=== PATIENT | female | born 1970 | race Caucasian/White ===

== ENCOUNTER 2017-02-04 16:08 | Emergency (ER) | payer BC ==
--- NOTE | 2017-02-04 19:11 | ED NURSING NOTES ---
Clinical Report - Nurses [facility] [address] [place] [address] 02/04/2017 16:09 Patient: BRANDON MAIER TRIAGE Triage time 16:13 Feb 04 2017. Acuity: LEVEL 4. Chief Complaint: (bilateral leg swelling). Alert. No acute distress. SHRUTHI COMA SCORE: Shruthi Coma Scale: 15- eyes open spontaneously (4); best verbal response- oriented x 4 (5); best motor response- obeys commands (6). --16:29 Socorro Lowe R.N. 16:13 02/04/17. BP: 142/84. HR: 95. RR: 18. O2 saturation: 98%. Temp: 98.2 F. Pain level now 2/10. --16:29 Socorro Lowe R.N. Weight: 113.3 kg stated. Height/Length: 63 inches Per Patient. BMI: 44.3. --16:12 Socorro Lowe R.N. Medications Losartan Potassium-HCTZ Oral (Tablet 100-25 mg). --16:18 Socorro Lowe R.N. Venlafaxine HCl ER Oral 150 mg . --16:19 Socorro Lowe R.N. MetFORMIN HCl ER Oral 1000mg daily. --16:20 Socorro Lowe R.N. Loratadine Oral 10 mg. --16:20 Socorro Lowe R.N. Vitamin D3 5000 units, daily. --16:21 Socorro Lowe R.N. NexIUM Oral 20 mg, daily. --16:21 Socorro Lowe R.N. Medication/allergy information source: the patient. --16:29 Socorro Lowe R.N. Allergies Penicillins. (rash) --16:18 Socorro Lowe R.N. History Arrived by private vehicle. Historian: patient. Primary physician (Mirna Meyer). ( Bilateral Swelling in legs. Noticed the swelling last night, significantly different than the normal swelling she may get from HCTZ. Pt has a job where she is sitting all the time. No history of blood clots.). This started yesterday. Treatment HELP DESK SUPPORT: None. SOCIAL HX: Never smoker. Alcohol use; consumes liquor drinks. History of drug use: marijuana. (used too, no longer). No infectious disease exposure. FALL RISK ASSESSMENT: Fall risk assessment completed. No fall risk identified. NUTRITIONAL RISK ASSESSMENT: The nutritional risk assessment revealed no deficiencies. FUNCTIONAL ASSESSMENT: Functional assessment: no impairments noted. LEARNING NEEDS ASSESSMENT: The learning needs assessment revealed no barriers. SKIN INTEGRITY ASSESSMENT: Skin integrity risk assessment completed. No skin integrity risk identified. --16:29 Socorro Lowe R.N. PROBLEMS: Hypertension. Diabetes Mellitus Type 2. --16:24 Socorro Lowe R.N. ADDITIONAL SURGERIES: Carpal Tunnel Surgery. Cholecystectomy. Hysterectomy. Knee Scope. Laparoscopy. Right Foot Sx. --16:24 Socorro Lowe R.N. Interventions ID band on patient. To room. --16:29 Socorro Lowe R.N. PHYSICAL ASSESSMENT GENERAL / NEURO / PSYCH: Oriented X 4. Appears in no acute distress. RESPIRATORY: Respirations not labored. CVS: Capillary refill less than 2 seconds. SKIN: Skin is warm and dry. --16:30 Socorro Lowe R.N. SKIN: Swelling to right leg, right ankle, right foot, left leg, left ankle and left foot (pitting edema). --17:04 Socorro Lowe R.N. NURSING PROGRESS NOTES Patient gowned. Reassurance given. Patient ready for evaluation- ED physician and TOBACCO DIPPER notified. --16:30 Socorro Lowe R.N. EKG time: (17:52). EKG was performed by a tech and shown to the ED physician. --18:06 Vaishail Patterson 18:21 02/04/2017 Site #1 started via IV in the left antecubital space with an 20g angiocath, with aseptic technique and good blood return; two attempts. Blood drawn: rainbow set. Labeled in the presence of the patient and sent to the lab. Saline lock flushed with 10 mL saline. --18:21 Qian Cisneros R.N. Reassurance given. ( [place] [id number]). Patient waiting for evaluation. --18:49 Socorro Lowe R.N. 18:44 02/04/17. BP: 143/81. HR: 96. RR: 18. O2 saturation: 99%. Pain level now 0/10. --18:49 Socorro Lowe R.N. Care transferred and report given (VONNIE Low). --19:07 Socorro Lowe R.N. DISPOSITION / DISCHARGE Departure time: 19:50. Condition at departure: improved. No learning barriers present. Discharge instructions provided and reviewed with the patient. Follow up contact number with PCP. Patient verbalized understanding. Written instructions provided in [place] Island[place]. No warning instructions, medication instructions, treatment instructions, referrals given to the patient or diet instructions. No activity restrictions, note given or stop smoking instructions. The patient was discharged by the nurse practitioner. She was discharged home. She left the Emergency Department ambulatory and via private vehicle. Patient driving. FALL RISK ASSESSMENT: Fall risk assessment completed. No fall risk identified. --19:50 Blas Fuller 19:49 02/04/17. BP: 143/81. HR: 78. RR: 18. O2 saturation: 99%. Temp: deferred. Pain level now: 0/10. --19:50 Blas Fuller 19:50 02/04/2017 Site #1 removed upon discharge. Catheter intact. Bandaid applied. --19:50 Blas Fuller Locked/Released at 02/04/2017 19:50 by Blas Fuller
--- NOTE | 2017-02-04 19:11 | ED CLINICAL REPORT ---
Clinical Report - Physicians/Mid Levels [facility] [address] [place] [address] 02/04/2017 16:09 Patient: BRANDON MAIER Time Seen: 17:23; initial patient contact, initial documentation, patient care assumed. Arrived- By private vehicle. Historian- patient. HISTORY OF PRESENT ILLNESS Chief Complaint: LOWER EXTREMITY SWELLING. Not relieved by anything- worsened by standing and walking. The quality is noted to be similar to prior episodes. No radiation. This started last night and is still present. Symptoms located in the area of the right ankle, right leg, right foot, left leg, left foot and left ankle. The patient has had swelling, but not had redness. No difficulty walking. No bladder dysfunction, bowel dysfunction, sensory loss or motor loss. Patient denies an injury. Similar symptoms previously: Chronically, milder. ( states she has had trouble with leg swelling for years, and approx x3 years ago, had veins removed in L leg, and they thought that was reason L leg was bigger than R, but it didn't help). Recent medical care: Not recently seen/assessed. REVIEW OF SYSTEMS No chest pain, difficulty breathing or fever. All systems otherwise negative, except as recorded above. PAST HISTORY See nurses notes. ( PROBLEMS: Hypertension. Diabetes Mellitus Type 2. --16:24 Socorro Lowe R.N. ADDITIONAL SURGERIES: Carpal Tunnel Surgery. Cholecystectomy. Hysterectomy. Knee Scope. Laparoscopy. Right Foot Sx. --16:24 Socorro Lowe R.N.). SOCIAL HISTORY Never smoker. Regular alcohol use. History of heavy drug use: marijuana. No recent travel. Is a local resident. FAMILY HISTORY Negative. ADDITIONAL NOTES The nursing notes have been reviewed with agreement regarding the chief complaint, HPI, ROS, PMH and patient medications and allergies. PHYSICAL EXAM Vital Signs: 02/04/2017 16:13 BP: 142/84. HR: 95. RR: 18. O2 saturation: 98%. Temp: 98.2 F. Have been reviewed as normal and appear to be correct. Appearance: Alert. Oriented X3. No acute distress. Eyes: Pupils equal, round and reactive to light. Eyes normal inspection. Neck: Normal inspection. Neck supple. CVS: Normal heart rate and rhythm. Heart sounds normal. Respiratory: No respiratory distress. Breath sounds normal. Back: Normal inspection. No tenderness. ROM normal. Skin: Skin intact. Skin warm and dry. Normal skin color. Normal skin turgor. Extremities: Lower extremities exhibit normal ROM. Lower extremity edema present. Bilateral non-pitting edema of the lower extremities involving both feet, both ankles and both lower legs; mild non-pitting edema of the right lower extremity involving the foot and ankle; left lower extremity involving the foot, ankle and lower leg. Extremities otherwise negative. Gait: Normal gait. Neuro: Oriented X 3. No motor deficit. No sensory deficit. LABS, X-RAYS, AND EKG EKG: EKG time: (1751). No acute process. No acute ischemia. Normal EKG. Rate: 82. Normal EKG. The study has been interpreted contemporaneously by me (and Dr Langford). The EKG appears to be a good tracing. Interpretation time: 1753. Laboratory Tests: CBC w Diff: (KIM: 02/04/2017 18:20) ( MsgRcvd 02/04/2017 18:33) Final results Test Result Flag Units (Reference) WHITE BLOOD COUNT 5.5 K/uL (4.5-11.5) RED BLOOD COUNT 4.24 M/uL (4.00-5.20) HEMOGLOBIN 10.6 L gm/dL (12.0-16.0) HEMATOCRIT 33.2 L % (36.0-46.0) MEAN CELL VOLUME 78 L fL (80-100) MEAN CORPUSCULAR HGB 25 L pg (26-34) MEAN CORPUSCULAR HGB CONC 32 g/dL (31-37) RED CELL DISTRIBUTION WIDTH 17.5 H % (11.6-14.8) PLATELET COUNT 284 K/uL (150-400) NEUTROPHIL % 52.2 % (50-75) LYMPH % 39.7 % (25-40) MONO % 4.9 % (3-14) EOSINOPHIL % 2.4 % (0-4) BASOPHIL % 0.8 % (0-2) [id number]: (KIM: 02/04/2017 18:20) ( MsgRcvd 02/04/2017 18:34) Final results Test Result Flag Units (Reference) D-DIMER QUANTITATIVE 0.32 ug/mLFEU (0.27-0.52) The primary value of this quantitative assay relates toits negative predictive value (i.e. exclusion) of pulmonaryembolism/deep vein thrombosis/DIC.Elevated levels of d-dimer may also occur with:, age, cancer, inflammation, liver disease,post-op, infection, hematoma, coronary disease, peripheralarteriopathy, bleeding disorders and thrombolytic treatment.Results should be correlated with other clinical andradiological data.Testing Methodology: Latex Immunoassay CMP: (KIM: 02/04/2017 18:20) ( MsgRcvd 02/04/2017 18:39) Final results Test Result Flag Units (Reference) GLUCOSE 98 mg/dL (70-110) BUN 12 mg/dL (7-18) CREATININE 0.9 mg/dL (0.6-1.3) Estimated GFR >60 mL/min Estimated GFR- >60 mL/min Note: Persistent reduction over 3 months in eGFR<60 mL/min/1.73 m2 defines CKD. Patients with eGFR values>=60 mL/min/1.73 m2 may also have CKD if evidence ofpersistent proteinuria. Additional information may be foundat www.kidney.org. SODIUM 139 mmol/L (136-145) POTASSIUM 3.4 L mmol/L (3.5-5.1) CHLORIDE 102 mmol/L (98-107) CARBON DIOXIDE 27 mmol/L (21-32) CALCIUM 9.2 mg/dL (8.5-10.1) TOTAL PROTEIN 7.2 g/dL (6.4-8.2) ALBUMIN 3.4 g/dL (3.3-5.0) BILIRUBIN, TOTAL 0.5 mg/dL (0.0-1.0) ALKALINE PHOSPHATASE 60 U/L (46-116) AST (SGOT) 22 U/L (15-37) ALT (SGPT) 29 U/L (12-78) . PROGRESS AND PROCEDURES Course of Care: 02/04/2017 18:44 BP: 143/81. HR: 96. RR: 18. O2 saturation: 99%. Vital Signs: have been reviewed as normal and appear to be correct. Patient counseled in person regarding the patient's stable condition, test results and diagnosis. 1905. Differential Diagnosis: Other possible considerations: dvt, pvd, venous stasis, dependent edema, renal insufficiency/failure, chf, electrolyte imbalance. Above considerations are based on history, physical exam, reassessment and laboratory data. Differential diagnosis was discussed with patient. Disposition: Discharged home in good and unchanged condition (19:11). Condition: good and stable. CLINICAL IMPRESSION Bilateral pedal edema secondary to unknown cause. No congestive heart failure. INSTRUCTIONS Warnings: GENERAL WARNINGS: Return or contact your physician immediately if your condition worsens or changes unexpectedly, if not improving as expected, or if other problems arise. Specifically return if problem worsens. Follow-up: Follow up with your doctor in about three days even if well. Call for an appointment. Summary of care provided to patient. Understanding of the discharge instructions verbalized by patient. (Electronically signed by Marianela Costello A.R.N.P. 02/04/2017 21:15)
--- NOTE | 2017-02-04 19:11 | ED NURSING NOTES ---
Clinical Report - Nurses [facility] [address] [place] [address] 02/04/2017 16:09 Patient: BRANDON MAIER TRIAGE Triage time 16:13 Feb 04 2017. Acuity: LEVEL 4. Chief Complaint: (bilateral leg swelling). Alert. No acute distress. SHRUTHI COMA SCORE: Shruthi Coma Scale: 15- eyes open spontaneously (4); best verbal response- oriented x 4 (5); best motor response- obeys commands (6). --16:29 Socorro Lowe R.N. 16:13 02/04/17. BP: 142/84. HR: 95. RR: 18. O2 saturation: 98%. Temp: 98.2 F. Pain level now 2/10. --16:29 Socorro Lowe R.N. Weight: 113.3 kg stated. Height/Length: 63 inches Per Patient. BMI: 44.3. --16:12 Socorro Lowe R.N. Medications Losartan Potassium-HCTZ Oral (Tablet 100-25 mg). --16:18 Socorro Lowe R.N. Venlafaxine HCl ER Oral 150 mg . --16:19 Socorro Lowe R.N. MetFORMIN HCl ER Oral 1000mg daily. --16:20 Socorro Lowe R.N. Loratadine Oral 10 mg. --16:20 Socorro Lowe R.N. Vitamin D3 5000 units, daily. --16:21 Socorro Lowe R.N. NexIUM Oral 20 mg, daily. --16:21 Socorro Lowe R.N. Medication/allergy information source: the patient. --16:29 Socorro Lowe R.N. Allergies Penicillins. (rash) --16:18 Socorro Lowe R.N. History Arrived by private vehicle. Historian: patient. Primary physician (Mirna Meyer). ( Bilateral Swelling in legs. Noticed the swelling last night, significantly different than the normal swelling she may get from HCTZ. Pt has a job where she is sitting all the time. No history of blood clots.). This started yesterday. Treatment PROCUREMENT SERVICES MANAGER: None. SOCIAL HX: Never smoker. Alcohol use; consumes liquor drinks. History of drug use: marijuana. (used too, no longer). No infectious disease exposure. FALL RISK ASSESSMENT: Fall risk assessment completed. No fall risk identified. NUTRITIONAL RISK ASSESSMENT: The nutritional risk assessment revealed no deficiencies. FUNCTIONAL ASSESSMENT: Functional assessment: no impairments noted. LEARNING NEEDS ASSESSMENT: The learning needs assessment revealed no barriers. SKIN INTEGRITY ASSESSMENT: Skin integrity risk assessment completed. No skin integrity risk identified. --16:29 Socorro Lowe R.N. PROBLEMS: Hypertension. Diabetes Mellitus Type 2. --16:24 Socorro Lowe R.N. ADDITIONAL SURGERIES: Carpal Tunnel Surgery. Cholecystectomy. Hysterectomy. Knee Scope. Laparoscopy. Right Foot Sx. --16:24 Socorro Lowe R.N. Interventions ID band on patient. To room. --16:29 Socorro Lowe R.N. PHYSICAL ASSESSMENT GENERAL / NEURO / PSYCH: Oriented X 4. Appears in no acute distress. RESPIRATORY: Respirations not labored. CVS: Capillary refill less than 2 seconds. SKIN: Skin is warm and dry. --16:30 Socorro Lowe R.N. SKIN: Swelling to right leg, right ankle, right foot, left leg, left ankle and left foot (pitting edema). --17:04 Socorro Lowe R.N. NURSING PROGRESS NOTES Patient gowned. Reassurance given. Patient ready for evaluation- ED physician and ARRT TECHNOLOGIST notified. --16:30 Socorro Lowe R.N. EKG time: (17:52). EKG was performed by a tech and shown to the ED physician. --18:06 Vaishali Patterson 18:21 02/04/2017 Site #1 started via IV in the left antecubital space with an 20g angiocath, with aseptic technique and good blood return; two attempts. Blood drawn: rainbow set. Labeled in the presence of the patient and sent to the lab. Saline lock flushed with 10 mL saline. --18:21 Qian Cisneros R.N. Reassurance given. ( [place] [id number]). Patient waiting for evaluation. --18:49 Socorro Lowe R.N. 18:44 02/04/17. BP: 143/81. HR: 96. RR: 18. O2 saturation: 99%. Pain level now 0/10. --18:49 Socorro Lowe R.N. Care transferred and report given (VONNIE Low). --19:07 Socorro Lowe R.N. DISPOSITION / DISCHARGE Departure time: 19:50. Condition at departure: improved. No learning barriers present. Discharge instructions provided and reviewed with the patient. Follow up contact number with PCP. Patient verbalized understanding. Written instructions provided in [place]. No warning instructions, medication instructions, treatment instructions, referrals given to the patient or diet instructions. No activity restrictions, note given or stop smoking instructions. The patient was discharged by the nurse practitioner. She was discharged home. She left the Emergency Department ambulatory and via private vehicle. Patient driving. FALL RISK ASSESSMENT: Fall risk assessment completed. No fall risk identified. --19:50 Blas Fuller 19:49 02/04/17. BP: 143/81. HR: 78. RR: 18. O2 saturation: 99%. Temp: deferred. Pain level now: 0/10. --19:50 Blas Fuller 19:50 02/04/2017 Site #1 removed upon discharge. Catheter intact. Bandaid applied. --19:50 Blas Fuller Locked/Released at 02/04/2017 19:50 by Blas Fuller
--- NOTE | 2017-02-04 19:11 | ED ORDER SUMMARY ---
..... Patient: BRANDON MAIER OrderSheet [facility] VisitID: [id number] [place] [address] 46y, F Registration Date/Time: 02/04/2017 ORDER SHEET Weight: 113.3 kg (stated) Allergies: Penicillins GENERAL ORDERS: CBC w Diff Urgent (17:40 02/04/2017 HBivens A.R.N.P.) (Ack 18:02 Romannandez) (18:20 JSanders R.N.) CMP Urgent (17:40 02/04/2017 HBivens A.R.N.P.) (Ack 18:02 Romannandez) (18:20 JSanders R.N.) D-Dimer Urgent (17:40 02/04/2017 HBivens A.R.N.P.) (Ack 18:02 Shanna) (18:20 JSanders R.N.) EKG - ER Stat (17:40 02/04/2017 HBivens A.R.N.P.) (18:05 JSanders R.N.) (18:06 [facility]) MEDICATION ORDERS: IV FLUIDS: IV Saline Lock (17:40 02/04/2017 HBivens A.R.N.P.) (18:21 JSanders R.N.) ORDER SHEET NOTES: [Electronically signed by Maranda Holland R.N. (19:50 02/04/2017)] [Electronically signed by Marianela Costello.R.N.P. (21:15 02/04/2017)] [Electronically locked/signed by Maranda Holland R.N. (19:50 02/04/2017)]
--- NOTE | 2017-02-04 19:11 | ED ORDER SUMMARY ---
..... Patient: BRANDON MAIER OrderSheet [facility] VisitID: [id number] [place] [address] 46y, F Registration Date/Time: 02/04/2017 ORDER SHEET Weight: 113.3 kg (stated) Allergies: Penicillins GENERAL ORDERS: CBC w Diff Urgent (17:40 02/04/2017 HBivens A.R.N.P.) (Ack 18:02 Romannandez) (18:20 JSanders R.N.) CMP Urgent (17:40 02/04/2017 HBivens A.R.N.P.) (Ack 18:02 Romannandez) (18:20 JSanders R.N.) D-Dimer Urgent (17:40 02/04/2017 HBivens A.R.N.P.) (Ack 18:02 Shanna) (18:20 JSanders R.N.) EKG - ER Stat (17:40 02/04/2017 HBivens A.R.N.P.) (18:05 JSanders R.N.) (18:06 [facility]) MEDICATION ORDERS: IV FLUIDS: IV Saline Lock (17:40 02/04/2017 HBivens A.R.N.P.) (18:21 JSanders R.N.) ORDER SHEET NOTES: [Electronically signed by Maranda Holland R.N. (19:50 02/04/2017)] [Electronically signed by Marianela Costello.R.N.P. (21:15 02/04/2017)] [Electronically locked/signed by Maranda Holland R.N. (19:50 02/04/2017)]
--- NOTE | 2017-02-04 21:16 | ED MED RECONCILIATION SUMMARY ---
Patient: BRANDON MAIER Medication Reconciliation Report [facility] VisitID: [id number] [address] [place] [address] 46y, F Registration Date/Time: 02/04/2017 Weight: 113.3 kg Height/Length: 63 in. BMI: 44.3 ALLERGIES: Penicillins The patient's Home Medications are listed below: THE FOLLOWING MEDICATIONS NEED TO BE RECONCILED: Loratadine Oral 10 mg Losartan Potassium-HCTZ Oral (100-25 mg) MetFORMIN HCl ER Oral 1000mg daily NexIUM Oral 20 mg, daily Venlafaxine HCl ER Oral 150 mg Vitamin D3 5000 units, daily The source(s) of the original Home Medication information: patient The following Medications were given to the patient in the Emergency Department: None. The following Medications were prescribed to the patient: None.
--- NOTE | 2017-02-04 21:16 | ED DISCHARGE INSTRUCTIONS ---
Patient: BRANDON MAIER General Instructions [facility] VisitID: [id number] [place] [address] 46y, [place] Registration Date/Time: 02/04/2017 Bilateral pedal edema secondary to unknown cause. No congestive heart failure. INSTRUCTIONS Warnings: GENERAL WARNINGS: Return or contact your physician immediately if your condition worsens or changes unexpectedly, if not improving as expected, or if other problems arise. Specifically return if problem worsens. Follow-up: Follow up with your doctor in about three days even if well. Call for an appointment. Summary of care provided to patient. Understanding of the discharge instructions verbalized by patient. ADDITIONAL INFORMATION Leg Swelling [Bilateral] Swelling of the feet, ankles and legs is called "Edema." It is due to excess fluid collecting in the tissues. Because of gravity, excess fluid in the body settles in the lowest part. This is why the legs and feet are most affected. Some of the causes for edema include: Disease of the heart (congestive heart failure or "CHF") Prolonged standing or sitting (with the legs in the down position) Infection of the feet or legs Venous Insufficiency (congestion of blood in the veins of the legs) Varicose veins (dilated veins of the lower leg) Garters, or clothing that constricts your legs. (These will cause venous congestion by restricting blood flow.) Some medicines (hormones such as control pills; some blood pressure medicines, such as calcium channel blockers; steroids; some antidepressants such as MAO inhibitors and tricyclics.) Menstrual periods with fluid retention Renal insufficiency (a form of kidney disease) Liver failure (Some swelling is normal, but a sudden increase in leg swelling or weight gain can be a sign of a dangerous complication of ). Medical treatment will depend on the cause of your swelling. Diuretics (water pills) may be prescribed to remove excess fluid. Home Care: Do not wear garments that constrict your legs (such as garters). Elevate your legs while lying or sitting. If infection, injury or recent surgery is the cause for your swelling, stay off your legs as much as possible until symptoms improve. If your doctor says that your leg swelling is caused by venous insufficiency or varicose veins, do not sit or bilingual instructor one place for long periods of time. Take breaks and walk about every few hours. Brisk walking is a good exercise and helps circulate the congested blood from your leg. Talk to your doctor about the use of support stockings to prevent daytime leg swelling. If your doctor says that heart disease is the cause of your leg swelling, follow a low-salt diet to prevent excess fluid retention. Follow Up with your doctor or as advised by our staff. Get Prompt Medical Attention if any of the following occur: New or worsening shortness of breath or chest pain Increasing swelling in both legs or ankles Swelling of the abdomen Redness, warmth or swelling in one leg Fever of 100.4F (38C) or higher, or as directed by your healthcare provider Yellow color to the skin or eyes Rapid, unexplained weight gain You have been given the following additional information: Peripheral Edema, Bilateral (Electronically signed by Marianela Costello A.R.N.P. 02/04/2017 21:15)
--- NOTE | 2017-02-04 21:16 | ED MAR SUMMARY ---
..... Medication Administration Record [facility] [address] [place], [place] [id number] Patient: BRANDON MAIER Visit ID: [id number] 46y, F Weight: 113.3 kg Height/Length: 63 in BMI: 44.3 ALLERGIES: Penicillins
--- NOTE | 2017-02-04 21:16 | ED DISCHARGE INSTRUCTIONS ---
Patient: BRANDON MAIER General Instructions [facility] VisitID: [id number] [place] [address] 46y, F Registration Date/Time: 02/04/2017 Bilateral pedal edema secondary to unknown cause. No congestive heart failure. INSTRUCTIONS Warnings: GENERAL WARNINGS: Return or contact your physician immediately if your condition worsens or changes unexpectedly, if not improving as expected, or if other problems arise. Specifically return if problem worsens. Follow-up: Follow up with your doctor in about three days even if well. Call for an appointment. Summary of care provided to patient. Understanding of the discharge instructions verbalized by patient. ADDITIONAL INFORMATION Leg Swelling [Bilateral] Swelling of the feet, ankles and legs is called "Edema." It is due to excess fluid collecting in the tissues. Because of gravity, excess fluid in the body settles in the lowest part. This is why the legs and feet are most affected. Some of the causes for edema include: Disease of the heart (congestive heart failure or "CHF") Prolonged standing or sitting (with the legs in the down position) Infection of the feet or legs Venous Insufficiency (congestion of blood in the veins of the legs) Varicose veins (dilated veins of the lower leg) Garters, or clothing that constricts your legs. (These will cause venous congestion by restricting blood flow.) Some medicines (hormones such as control pills; some blood pressure medicines, such as calcium channel blockers; steroids; some antidepressants such as MAO inhibitors and tricyclics.) Menstrual periods with fluid retention Renal insufficiency (a form of kidney disease) Liver failure (Some swelling is normal, but a sudden increase in leg swelling or weight gain can be a sign of a dangerous complication of ). Medical treatment will depend on the cause of your swelling. Diuretics (water pills) may be prescribed to remove excess fluid. Home Care: Do not wear garments that constrict your legs (such as garters). Elevate your legs while lying or sitting. If infection, injury or recent surgery is the cause for your swelling, stay off your legs as much as possible until symptoms improve. If your doctor says that your leg swelling is caused by venous insufficiency or varicose veins, do not sit or floor service worker spring one place for long periods of time. Take breaks and walk about every few hours. Brisk walking is a good exercise and helps circulate the congested blood from your leg. Talk to your doctor about the use of support stockings to prevent daytime leg swelling. If your doctor says that heart disease is the cause of your leg swelling, follow a low-salt diet to prevent excess fluid retention. Follow Up with your doctor or as advised by our staff. Get Prompt Medical Attention if any of the following occur: New or worsening shortness of breath or chest pain Increasing swelling in both legs or ankles Swelling of the abdomen Redness, warmth or swelling in one leg Fever of 100.4F (38C) or higher, or as directed by your healthcare provider Yellow color to the skin or eyes Rapid, unexplained weight gain You have been given the following additional information: Peripheral Edema, Bilateral (Electronically signed by Marianela Costello A.R.N.P. 02/04/2017 21:15)
--- NOTE | 2017-02-04 21:16 | ED MAR SUMMARY ---
..... Medication Administration Record [facility] [address] [place], [place] [id number] Patient: BRANDON MAIER Visit ID: [id number] 46y, F Weight: 113.3 kg Height/Length: 63 in BMI: 44.3 ALLERGIES: Penicillins
--- NOTE | 2017-02-04 21:16 | ED MED RECONCILIATION SUMMARY ---
Patient: BRANDON MAIER Medication Reconciliation Report [facility] VisitID: [id number] [address] [place] [address] 46y, F Registration Date/Time: 02/04/2017 Weight: 113.3 kg Height/Length: 63 in. BMI: 44.3 ALLERGIES: Penicillins The patient's Home Medications are listed below: THE FOLLOWING MEDICATIONS NEED TO BE RECONCILED: Loratadine Oral 10 mg Losartan Potassium-HCTZ Oral (100-25 mg) MetFORMIN HCl ER Oral 1000mg daily NexIUM Oral 20 mg, daily Venlafaxine HCl ER Oral 150 mg Vitamin D3 5000 units, daily The source(s) of the original Home Medication information: patient The following Medications were given to the patient in the Emergency Department: None. The following Medications were prescribed to the patient: None.
== END 2017-02-04 19:50 | disposition home or self-care (01) ==
LOC: ED SRH 16:08
DX: R60.0 Localized edema (principal); I10 Essential (primary) hypertension; E11.9 Type 2 diabetes mellitus without complications; Z79.899 Other long term (current) drug therapy; Z79.84 Long term (current) use of oral hypoglycemic drugs; Z88.0 Allergy status to penicillin
CPT/HCPCS: 90100; 91556; 95059

== ENCOUNTER 2017-03-04 10:27 | Outpatient (CLI) | payer BC ==
--- NOTE | 2017-03-04 16:57 | DIAGNOSTIC IMAGING REPORT ---
PROCEDURE: US SOFT TISSUE THYR/NECK/HEAD INDICATION: NEOPLASM MALIGNANT THYROID GLAND TECHNIQUE: Bach scale and color Doppler sonographic images of the thyroid gland were obtained. COMPARISON: None. FINDINGS: The right thyroid lobe is reportedly surgically absent, however there is a mildly irregular, ovoid, hypoechoic nodule in the right thyroid bed measuring 0.9 x 0.8 x 1.4 cm with trace vascularity. The left thyroid lobe measures 1.3 x 1.6 x 3.5 cm. There is normal vascularity and fairly homogeneous echotexture. The margins are mildly irregular. The isthmus measures 5.2 mm in thickness and demonstrates homogeneous echotexture and normal vascularity. No significant adenopathy adjacent to the gland. IMPRESSION: 1. Residual or recurrent thyroid tissue in the right thyroidectomy bed. Comparison to prior studies is necessary. An addendum will be generated when these become available for review. Correlation with serum thyroglobulin levels is recommended. 2. Mildly diminutive left thyroid lobe without cyst or solid mass.
== END 2017-03-04 23:00 ==
LOC: US SRH 10:27
DX: C73 Malignant neoplasm of thyroid gland (principal)